=== PATIENT | female | born 1950 | race Caucasian/White ===

== ENCOUNTER 2021-04-27 16:34 | Inpatient (IN) ==
[2021-04-27] MEDS ORDERED: Perflutren Lipid Microsphere 1.3 ML in 0.9 % Sodium Chloride 8.7 ML IVP PRN (17:02)
[2021-04-27 17:26] LABS: Basophils # 0.1 K/mcL (0.0-0.2); Basophils % 0.7 %; Eosinophils # 0.1 K/mcL (0.0-0.6); Eosinophils % 0.6 %; Hematocrit 41.7 % (35.3-44.9); Hemoglobin 14.1 g/dL (11.5-15.4); Immature Granulocytes % 0.8 % (0-4); Lymphocytes # 3.3 K/mcL (0.6-4.6); Lymphocytes % 24.7 %; Mean Corpuscular HGB Conc 33.8 g/dL (31.6-35.5); Mean Corpuscular Hemoglobin 30.1 pg (28.0-33.3); Mean Corpuscular Volume 88.9 fL (83.0-100.0); Mean Platelet Volume 10.4 fL (9.4-12.4); Monocytes # 0.9 K/mcL (0.0-1.3); Monocytes % 6.5 %; Platelet Count 458 K/mcL (140-400); Red Blood Count 4.69 M/mcL (3.82-4.97); Red Cell Distribution Width 14.2 % (11.5-14.5); Segmented Neutrophils % 66.7 %; White Blood Count 13.5 K/mcL (4.3-11.1)
[2021-04-27 17:34] LABS: INR 1.1; Prothrombin Time 12.8 Seconds (9.4-12.1)
[2021-04-27 17:49] LABS: Alanine Aminotransferase 90 Units/L (7-52); Albumin 4.4 g/dL (3.5-5.7); Albumin/Globulin Ratio 1.5 (1.1-2.2); Alkaline Phosphatase 83 Units/L (34-104); Aspartate Amino Transferase 72 Units/L (13-39); BUN/Creatinine Ratio 23 (6-26); Bilirubin,Direct 0.2 mg/dL (0.0-0.2); Bilirubin,Indirect 0.5 mg/dL (0.0-1.0); Bilirubin,Total 0.7 mg/dL (0.3-1.0); Blood Urea Nitrogen 18 mg/dL (8-23); Calcium 9.5 mg/dL (8.6-10.3); Carbon Dioxide 23 mEq/L (23-29); Chloride 104 mEq/L (98-107); Globulin 2.9 g/dL (2.4-3.5); Glucose 101 mg/dL (70-105); Magnesium 1.9 mg/dL (1.6-2.6); Osmolality,Calculated 290 (280-300); Potassium 3.4 mEq/L (3.5-5.1); Sodium 139 mEq/L (136-145); Total Protein 7.3 g/dL (6.4-8.9); Troponin I < 0.03 ng/mL (< 0.04); eGFR For African Americans > 60 (> 60); eGFR For Non-African Americans > 60 (> 60)
[2021-04-27 18:19] LABS: Bacteria,Urine Few per hpf (None-Few); Bilirubin,Urine Negative (Negative); Blood,Urine Negative (Negative); Clarity,Urine Clear (Clear); Color,Urine Yellow (Yellow); Glucose,Urine (UA) Normal (Normal); Ketones,Urine Negative (Negative); Leukocyte Esterase,Urine Negative (Negative); Mucus,Urine Few per lpf (None-Few); Nitrite,Urine Negative (Negative); PH,Urine 6.5 pH Units (5.0-8.0); Protein,Urine 50 mg/dL (Neg-Trace); RBC,Urine 0-3 per hpf (0-3); Specific Gravity,Urine 1.014 (1.010-1.025); Urobilinogen,Urine Normal (Normal)
[2021-04-27] MEDS ORDERED: Naloxone 0.4 MG/ML INJ IVP PRN (20:38)
[2021-04-27] MEDS ORDERED: Ondansetron 4 MG/2 ML VIAL IVP PRN (20:38)
[2021-04-27] MEDS ORDERED: Acetaminophen 325 MG TABLET PO PRN (20:38)
[2021-04-27] MEDS ORDERED: 0.9 % Sodium Chloride 1,000 ML IVC SCH (20:45)
[2021-04-27 21:33] LABS: Thyroid Stimulating Hormone 3.884 mcIU/mL (0.340-5.600)
[2021-04-27] MEDS ORDERED: *HR* Atropine Sulfate 1 MG/10 ML SYRINGE ONE (23:50)
[2021-04-28 00:43] LABS: INR 1.2; Prothrombin Time 13.3 Seconds (9.4-12.1)
[2021-04-28 00:46] LABS: Activated Partial Thrombo Time 34.5 Seconds (26.0-36.0)
[2021-04-28 00:47] LABS: Hematocrit 35.3 % (35.3-44.9); Mean Corpuscular HGB Conc 33.7 g/dL (31.6-35.5); Mean Corpuscular Hemoglobin 30.1 pg (28.0-33.3); Mean Corpuscular Volume 89.4 fL (83.0-100.0); Mean Platelet Volume 10.4 fL (9.4-12.4); Platelet Count 356 K/mcL (140-400); Red Blood Count 3.95 M/mcL (3.82-4.97); Red Cell Distribution Width 14.2 % (11.5-14.5); White Blood Count 13.3 K/mcL (4.3-11.1)
[2021-04-28 00:48] LABS: Alanine Aminotransferase 65 Units/L (7-52); Albumin 3.5 g/dL (3.5-5.7); Albumin/Globulin Ratio 1.3 (1.1-2.2); Alkaline Phosphatase 65 Units/L (34-104); Aspartate Amino Transferase 40 Units/L (13-39); BUN/Creatinine Ratio 27 (6-26); Bilirubin,Total 0.6 mg/dL (0.3-1.0); Blood Urea Nitrogen 20 mg/dL (8-23); Calcium 8.9 mg/dL (8.6-10.3); Carbon Dioxide 22 mEq/L (23-29); Chloride 107 mEq/L (98-107); Chol/HDL Ratio 5.4 (0-4.9); Cholesterol 188 mg/dL (< 200); Globulin 2.8 g/dL (2.4-3.5); Glucose 80 mg/dL (70-105); HDL Cholesterol 35 mg/dL (40-59); Hemoglobin 11.9 g/dL (11.5-15.4); LDL Cholesterol,Calculated 94 mg/dL (< 100); Magnesium 1.8 mg/dL (1.6-2.6); Osmolality,Calculated 290 (280-300); Potassium 3.6 mEq/L (3.5-5.1); Sodium 139 mEq/L (136-145); Total Protein 6.3 g/dL (6.4-8.9); Triglycerides 295 mg/dL (< 150); eGFR For African Americans > 60 (> 60); eGFR For Non-African Americans > 60 (> 60)
[2021-04-28 00:51] LABS: Troponin I < 0.03 ng/mL (< 0.04)
[2021-04-28] MEDS: *HR* Heparin 5,000 UNIT/ML VIAL SQ SCH ×3 (04:32→21:11)
[2021-04-28 09:36] LABS: Phosphorous 3.3 mg/dL (2.7-4.5)
[2021-04-28] MEDS: FLUoxetine 20 MG CAPSULE PO SCH (13:52)
[2021-04-28] MEDS ORDERED: *HR* Midazolam HCl 2 MG/2 ML VIAL ONE (16:11)
[2021-04-28] MEDS ORDERED: *HR* FentaNYL (PF) 100 MCG/2 ML VIAL ONE (16:11)
[2021-04-28] MEDS ORDERED: 0.9 % Sodium Chloride 1,000 ML ONE (16:12)
[2021-04-28] MEDS ORDERED: 0.9 % Sodium Chloride 500 ML ONE (16:12)
[2021-04-28] MEDS: *HR* OxyCODONE Immed Rel 5 MG TABLET PO PRN (18:10)
[2021-04-28] MEDS: CeFAZolin 2 GM/120 ML BAG IVPB SCH (23:49)
[2021-04-29] MEDS: *HR* Heparin 5,000 UNIT/ML VIAL SQ SCH ×3 (05:55→23:10)
[2021-04-29] MEDS: *HR* OxyCODONE Immed Rel 5 MG TABLET PO PRN (06:02)
[2021-04-29 08:41] LABS: Basophils # 0.1 K/mcL (0.0-0.2); Basophils % 0.6 %; Eosinophils # 0.2 K/mcL (0.0-0.6); Eosinophils % 1.5 %; Hematocrit 34.6 % (35.3-44.9); Hemoglobin 11.8 g/dL (11.5-15.4); Immature Granulocytes % 0.7 % (0-4); Lymphocytes # 2.2 K/mcL (0.6-4.6); Lymphocytes % 20.2 %; Mean Corpuscular HGB Conc 34.1 g/dL (31.6-35.5); Mean Corpuscular Hemoglobin 30.2 pg (28.0-33.3); Mean Corpuscular Volume 88.5 fL (83.0-100.0); Mean Platelet Volume 10.2 fL (9.4-12.4); Monocytes # 0.9 K/mcL (0.0-1.3); Monocytes % 8.3 %; Neutrophils # 7.5 K/mcL (1.6-8.9); Platelet Count 302 K/mcL (140-400); Red Blood Count 3.91 M/mcL (3.82-4.97); Red Cell Distribution Width 14.2 % (11.5-14.5); Segmented Neutrophils % 68.7 %; White Blood Count 10.9 K/mcL (4.3-11.1)
[2021-04-29 08:45] LABS: VBG Ionized Calcium 1.06 mmol/L (1.15-1.35)
[2021-04-29 09:00] LABS: Alanine Aminotransferase 40 Units/L (7-52); Albumin 3.8 g/dL (3.5-5.7); Albumin/Globulin Ratio 1.7 (1.1-2.2); Alkaline Phosphatase 73 Units/L (34-104); Aspartate Amino Transferase 23 Units/L (13-39); BUN/Creatinine Ratio 25 (6-26); Bilirubin,Total 0.7 mg/dL (0.3-1.0); Blood Urea Nitrogen 17 mg/dL (8-23); Calcium 8.8 mg/dL (8.6-10.3); Carbon Dioxide 23 mEq/L (23-29); Chloride 106 mEq/L (98-107); Globulin 2.2 g/dL (2.4-3.5); Glucose 118 mg/dL (70-105); Magnesium 1.8 mg/dL (1.6-2.6); Osmolality,Calculated 287 (280-300); Phosphorous 3.3 mg/dL (2.7-4.5); Potassium 3.8 mEq/L (3.5-5.1); Sodium 137 mEq/L (136-145); eGFR For African Americans > 60 (> 60); eGFR For Non-African Americans > 60 (> 60)
[2021-04-29] MEDS: CeFAZolin 2 GM/120 ML BAG IVPB SCH (09:43)
[2021-04-29] MEDS: FLUoxetine 20 MG CAPSULE PO SCH (09:43)
[2021-04-29] MEDS ORDERED: Naloxone 0.4 MG/ML INJ IVP PRN (12:52)
[2021-04-29] MEDS ORDERED: Acetaminophen 325 MG TABLET PO PRN (12:52)
[2021-04-29] MEDS ORDERED: *HR* OxyCODONE Immed Rel 5 MG TABLET PO PRN (12:52)
[2021-04-29] MEDS ORDERED: Ondansetron 4 MG/2 ML VIAL IVP PRN (12:52)
[2021-04-29] MEDS ORDERED: *HR* Heparin 5,000 UNIT/ML VIAL SQ SCH (22:00)
[2021-04-30 04:20] VITALS: TEMP 97.8
[2021-04-30] MEDS: *HR* Heparin 5,000 UNIT/ML VIAL SQ SCH (05:22)
[2021-04-30 05:59] LABS: VBG Ionized Calcium 1.19 mmol/L (1.15-1.35)
[2021-04-30 06:01] LABS: Basophils # 0.1 K/mcL (0.0-0.2); Basophils % 0.6 %; Eosinophils # 0.2 K/mcL (0.0-0.6); Eosinophils % 1.4 %; Hematocrit 34.3 % (35.3-44.9); Hemoglobin 11.4 g/dL (11.5-15.4); Lymphocytes # 2.7 K/mcL (0.6-4.6); Lymphocytes % 25.5 %; Mean Corpuscular HGB Conc 33.2 g/dL (31.6-35.5); Mean Corpuscular Hemoglobin 29.5 pg (28.0-33.3); Mean Corpuscular Volume 88.6 fL (83.0-100.0); Mean Platelet Volume 10.1 fL (9.4-12.4); Neutrophils # 6.4 K/mcL (1.6-8.9); Platelet Count 289 K/mcL (140-400); Red Blood Count 3.87 M/mcL (3.82-4.97); Red Cell Distribution Width 14.3 % (11.5-14.5); Segmented Neutrophils % 61.5 %; White Blood Count 10.5 K/mcL (4.3-11.1)
[2021-04-30 06:21] LABS: Alanine Aminotransferase 25 Units/L (7-52); Albumin 3.7 g/dL (3.5-5.7); Albumin/Globulin Ratio 1.6 (1.1-2.2); Alkaline Phosphatase 70 Units/L (34-104); Aspartate Amino Transferase 17 Units/L (13-39); BUN/Creatinine Ratio 22 (6-26); Bilirubin,Total 0.6 mg/dL (0.3-1.0); Blood Urea Nitrogen 13 mg/dL (8-23); Calcium 9.1 mg/dL (8.6-10.3); Carbon Dioxide 25 mEq/L (23-29); Chloride 105 mEq/L (98-107); Globulin 2.3 g/dL (2.4-3.5); Glucose 111 mg/dL (70-105); Magnesium 1.6 mg/dL (1.6-2.6); Osmolality,Calculated 285 (280-300); Phosphorous 2.9 mg/dL (2.7-4.5); Potassium 3.8 mEq/L (3.5-5.1); Sodium 137 mEq/L (136-145); eGFR For African Americans > 60 (> 60); eGFR For Non-African Americans > 60 (> 60)
[2021-04-30 06:42] VITALS: BP 151/64; PULSE 79; O2SAT 96
[2021-04-30] MEDS ORDERED: FLUoxetine 20 MG CAPSULE PO SCH (09:00)
== END 2021-04-30 10:55 | disposition home or self-care (01) | DRG 244 ==
LOC: 2NENU 16:34 → EMEROOARM 16:34 → 2NNU 19:34 → SUATTDRO 21:37 → 2NENU 04-28 17:47
PROVIDERS: ADMIT Student in an Organized Health Care Education/Training Program; ATTEND Family Medicine